=== PATIENT | male | born 1990 | race Caucasian/White ===

== ENCOUNTER → 2022-08-10 | Outpatient (CLI) | payer OTHER ==
--- NOTE | 2022-08-10 13:56 | CT ---
EXAMINATION TYPE: CT sinus wo con DATE OF EXAM: 08/10/2022 COMPARISON: None HISTORY: 32-year-old male J32.9, chronic sinusitis CT DLP: 688 mGycm Automated exposure control for dose reduction was used. TECHNIQUE: Noncontrast axial views of the paranasal sinuses were obtained. Coronal and sagittal refor matted images were obtained. FINDINGS: PARANASAL SINUSES: There is trace mucosal thickening right maxillary sinus. Otherwise, frontal, ethmoid, and sphenoid sinuses are well pneumatized. There is no air-fluid level. Reactive pamella- osteogenesis is not seen. There is no destruction of the osseous howell of the paranasal sinuses. THE NASAL CAVITY: The osteomeatal complexes are patent. There is leftward nasal septal deviation noted. The imaged brain brain and orbits are normal in appearance. Mastoid air cells and middle ear cavities are well pneumatized. Reformatted images confirm above findings. IMPRESSION: Only trace mucosal thickening right maxillary sinus. Leftward nasal septal deviation.
== END | disposition home or self-care (01) ==
LOC: RADCTMAIN 11:57
PROVIDERS: ATTEND Otolaryngology
DX: J34.2 Deviated nasal septum (principal); J34.89 Other specified disorders of nose and nasal sinuses
CPT/HCPCS: 70486

== ENCOUNTER → 2022-08-12 | Outpatient (CLI) | payer OTHER ==
--- NOTE | 2022-08-12 10:58 | US ---
EXAMINATION TYPE: US abdomen limited DATE OF EXAM: 08/12/2022 COMPARISON: NONE CLINICAL HISTORY: R74.01 ELEVATION OF LEVELS OF LIVER TRANSAMINASE L. TECHNIQUE: Multiple sonographic images of the right upper quadrant are obtained. FINDINGS: EXAM MEASUREMENTS: Liver Length: 15.2 cm Gallbladder Wall: 0.2 cm CBD: 0.2 cm Right Kidney: 13.1 x 3.9 x 4.5 cm MEDICAL STAFF DIRECTOR NOTES: Severe overlying bowel gas, somewhat limiting study. Pancreas: wnl as seen, partially obscure by overlying bowel gas Liver: wnl as seen, somewhat limited intercostal views Gallbladder: wnl as seen, limited views Evidence for sonographic Camarena's sign: no CBD: wnl , limited views Right Kidney: measures large IMPRESSION: 1. No acute ultrasound abnormality right upper quadrant ultrasound. There is some limitation due to b owel gas.
== END | disposition home or self-care (01) ==
LOC: RADUSWWP 08:51
PROVIDERS: ATTEND Family Medicine
DX: R74.01 Elevation of levels of liver transaminase levels (principal)
CPT/HCPCS: 76705